=== PATIENT | female | born 1950 | race Caucasian/White ===

== ENCOUNTER 2023-03-28 06:09 | Day surgery (SDC) | payer OTHER, SELFPAY ==
[2023-03-28 07:11] VITALS: BP 141/62; BMI 32.5
[2023-03-28 07:23] LABS: Glucose - Point of Care 111 mg/dl (70-99)
[2023-03-28 09:15] VITALS: BP 136/64
[2023-03-28 09:24] LABS: Glucose - Point of Care 127 mg/dl (70-99)
[2023-03-28 09:30] VITALS: BP 117/61
[2023-03-28 09:45] VITALS: BP 133/71
[2023-03-28] MEDS: CIPRO 400 MG 200 IV (09:55)
== END 2023-03-28 10:20 | disposition home or self-care (01) ==
LOC: SDS 06:09
PROVIDERS: ATTENDING PHYSICIAN Internal Medicine Gastroenterology
DX: K86.2 Cyst of pancreas (principal); K31.7 Polyp of stomach and duodenum; Z79.01 Long term (current) use of anticoagulants; K31.A15 Gastric intestinal metaplasia without dysplasia, involving multiple sites
CPT/HCPCS: 43238; 43251; 88305; 82962; 88342

== ENCOUNTER → 2023-03-31 07:54 | Outpatient (REF) | payer OTHER, SELFPAY | LOC: HWRAD 07:54 | PROVIDERS: ATTENDING PHYSICIAN Family Medicine | DX: M25.512 Pain in left shoulder (principal) | CPT/HCPCS: 72050; 73030 ==

== ENCOUNTER → 2023-05-23 07:22 | Outpatient (REF) | payer OTHER, SELFPAY | LOC: RAD 07:22 | PROVIDERS: ATTENDING PHYSICIAN Family Medicine | DX: I65.23 Occlusion and stenosis of bilateral carotid arteries (principal) | CPT/HCPCS: 93880 ==

== ENCOUNTER 2023-06-01 07:55 | Outpatient (RCR) | payer OTHER, SELFPAY | END 2023-06-01 23:59 | disposition home or self-care (01) | LOC: RPT 07:55 | PROVIDERS: ATTENDING PHYSICIAN Family Medicine | DX: M25.512 Pain in left shoulder (principal); Z73.6 Limitation of activities due to disability | CPT/HCPCS: 97162; 97530 ==

== ENCOUNTER → 2023-11-16 11:40 | Outpatient (REF) | payer OTHER, SELFPAY | LOC: PAVMRI 11:40 | PROVIDERS: ATTENDING PHYSICIAN Internal Medicine Gastroenterology; FAMILY PHYSICIAN Family Medicine | DX: K86.2 Cyst of pancreas (principal) | CPT/HCPCS: 74183; A9575 ==

== ENCOUNTER → 2023-11-21 08:48 | Outpatient (REF) | payer OTHER, SELFPAY | LOC: HWRCS 08:48 | PROVIDERS: ATTENDING PHYSICIAN Internal Medicine Cardiovascular Disease; FAMILY PHYSICIAN Family Medicine; REFERRING PHYSICIAN Internal Medicine | DX: I48.0 Paroxysmal atrial fibrillation (principal); Z95.2 Presence of prosthetic heart valve; M25.551 Pain in right hip | CPT/HCPCS: 73502; 93306 ==

== ENCOUNTER → 2023-11-22 12:04 | Outpatient (REF) | payer OTHER, SELFPAY | LOC: WDC 12:04 | PROVIDERS: ATTENDING PHYSICIAN Family Medicine | DX: Z12.31 Encounter for screening mammogram for malignant neoplasm of breast (principal) | CPT/HCPCS: 77063; 77067 ==

== ENCOUNTER → 2024-09-09 07:26 | Outpatient (REF) | payer OTHER, SELFPAY | LOC: PAVMRI 07:26 | PROVIDERS: ATTENDING PHYSICIAN Nurse Practitioner; FAMILY PHYSICIAN Family Medicine | DX: K86.2 Cyst of pancreas (principal); R16.0 Hepatomegaly, not elsewhere classified | CPT/HCPCS: 74183; A9575 ==

== ENCOUNTER 2024-12-19 06:02 | Day surgery (SDC) | payer OTHER, SELFPAY ==
[2024-12-19 07:28] VITALS: BMI 29.2
[2024-12-19 07:29] VITALS: BMI 29.2
[2024-12-19 07:30] VITALS: BP 176/88
[2024-12-19 07:32] LABS: Glucose - Point of Care 88 mg/dl (70-99)
[2024-12-19 09:35] VITALS: BP 134/53
[2024-12-19 09:45] VITALS: BP 156/77
[2024-12-19 10:00] VITALS: BP 168/70
== END 2024-12-19 10:24 | disposition home or self-care (01) ==
LOC: SDS 06:02
PROVIDERS: ATTENDING PHYSICIAN Internal Medicine Gastroenterology
DX: D12.0 Benign neoplasm of cecum (principal); D12.2 Benign neoplasm of ascending colon; D12.3 Benign neoplasm of transverse colon; D12.4 Benign neoplasm of descending colon; D12.5 Benign neoplasm of sigmoid colon; K57.30 Diverticulosis of large intestine without perforation or abscess without bleeding; K64.0 First degree hemorrhoids; Z79.01 Long term (current) use of anticoagulants
CPT/HCPCS: 45390; 82962; 88305

== ENCOUNTER → 2025-01-01 13:26 | Outpatient (REF) | payer OTHER, SELFPAY | LOC: WDC 13:26 | PROVIDERS: ATTENDING PHYSICIAN Family Medicine | DX: Z12.31 Encounter for screening mammogram for malignant neoplasm of breast (principal); Z12.39 Encounter for other screening for malignant neoplasm of breast | CPT/HCPCS: 77063; 77067 ==

== ENCOUNTER → 2025-01-10 07:59 | Outpatient (REF) | payer OTHER, SELFPAY | LOC: RCS 07:59 | PROVIDERS: ATTENDING PHYSICIAN Internal Medicine Cardiovascular Disease; FAMILY PHYSICIAN Family Medicine | DX: I48.0 Paroxysmal atrial fibrillation (principal); Z95.2 Presence of prosthetic heart valve | CPT/HCPCS: 93306 ==